=== PATIENT | female | born 1970 | race Two or more races ===

== ENCOUNTER 2018-01-07 15:42 | Emergency (ER) | payer OTHER ==
[~2018-01-07] VITALS: Ht 134.6 cm; Wt 59.0 kg
[2018-01-07 15:59] VITALS: BP 129/78
[2018-01-07] MEDS ORDERED: BACITRACIN-P28.35 GM TP (16:54)
[2018-01-07] MEDS ORDERED: IBUPROFEN600 MG ORAL (16:54)
[2018-01-07] MEDS ORDERED: Bacitracin Oint UD TOPIC ONE (17:00)
--- NOTE | 2018-01-07 22:41 | Emergency Room Report ---
History of Present Illness General Chief Complaint: General Complaint Source: Patient Present Illness HPI 47-year-old female presents to the emergency department complaining of several lacerations to the left forearm with tenderness, 7/10 in severity pain and discoloration associated. Patient reports injury occurred while she was at work. Patient denies taking blood thinning medications, increased to palpation , persistent bleeding, or gaping open wounds. Patient states she is up-to-date with tetanus vaccination which she received 2 years ago. Denies CP, Palpitations, LOC, AMS, dizziness, Changes in Vision, Sensation, paresthesias, or a sudden severe headache. Allergies: Coded Allergies: No Known Allergies (Unverified , 01/07/18) Patient History Past Medical History: see triage record Past Surgical History: none Pertinent Family History: none Last Menstrual Period: 12/27/17 Now: No Immunizations: UTD Reviewed Nursing Documentation: PMH: Agreed; PSxH: Agreed Nursing Documentation-PMH Hx Diabetes: Yes Review of Systems All Other Systems: negative except mentioned in HPI Physical Exam Vital Signs Date Time Temp Pulse Resp B/P (MAP) Pulse Ox O2 Delivery O2 Flow Rate FiO2 01/07/18 15:50 98.0 72 16 129/78 95 Room Air 98.1 Sp02 EP Interpretation: reviewed, normal General Appearance: no apparent distress, alert, GCS 15, non-toxic Head: normocephalic, atraumatic ENT: hearing grossly normal, normal voice Neck: full range of motion Respiratory: lungs clear, normal breath sounds, speaking full sentences Cardiovascular #1: regular rate, rhythm Musculoskeletal: back normal, gait/station normal, normal range of motion, tender - mild ttp with contusion noted to left forearm . Neurologic: alert, oriented x3, responsive, motor strength/tone normal, sensory intact, normal gait, speech normal, grossly normal Psychiatric: judgement/insight normal Skin: normal color, no rash, warm/dry, well hydrated, laceration - Three superficial lacerations to the left forearm each 2cm in length, not bleeding, no evidence of infection at this time. there is contusion of the left forearm. Medical Decision Making PA Attestation Dr. Chaves is my supervising Physician whom patient management has been discussed with. Diagnostic Impression: Primary Impression: Lacerations of multiple sites of left arm Qualified Codes: S41.112A - Laceration without foreign body of left upper arm , initial encounter Additional Impression: Contusion of forearm, left Qualified Codes: S50.12XA - Contusion of left forearm, initial encounter ER Course 47-year-old female presents to the emergency department complaining of several lacerations to the left forearm with tenderness, 7/10 in severity pain and discoloration associated. Patient reports injury occurred while she was at work. Patient denies taking blood thinning medications, increased to palpation , persistent bleeding, or gaping open wounds. Patient states she is up-to-date with tetanus vaccination which she received 2 years ago. Denies CP, Palpitations, LOC, AMS, dizziness, Changes in Vision, Sensation, paresthesias, or a sudden severe headache. Ddx considered but are not limited to laceration, tendon injury, cellulitis, amputation Vital signs: are WNL, pt. is afebrile H&PE are most consistent with: Three superficial lacerations to the left forearm each 2cm in length, not bleeding, no evidence of infection at this time. there is contusion of the left forearm. ORDERS: none required at this time, the diagnosis is clinical ED INTERVENTIONS: - The wound was cleaned, bacitracin and dressing applied by RN. d/w pt. conservative treatment, and to follow up with a primary care provider. pt given a list of primary care clinics for follow up. d/w pt. to return to the ED with worsening or new symptoms. DISCHARGE: At this time pt. is stable for d/c to home. Will provide printed patient care instructions, and any necessary prescriptions. Care plan and follow up instructions have been discussed with the patient prior to discharge. Last Vital Signs Date Time Temp Pulse Resp B/P (MAP) Pulse Ox O2 Delivery O2 Flow Rate FiO2 01/07/18 17:09 98.1 72 16 129/78 95 Room Air 98.1 Disposition: HOME, SELF-CARE Condition: Stable Scripts Bacitracin/Polymyxin B Sulfate (BACITRACIN-POLYMYXIN OINTMENT) 28.35 Gm Oint...g. 1 APPLIC TP BID, #28.3 GM Prov: Harini Vance P.AChristos 01/07/18 Ibuprofen* (MOTRIN*) 600 Mg Tablet 600 MG ORAL THREE TIMES A DAY, #20 TAB 0 Refills Prov: Harini Vance.David 5/1/18 Referrals: NOT CHOSEN [facility]/MD,REFERRING (PCP) Departure Forms: Return to Work Return to Work Date: January 10, 2018 Work Restrictions: None Other Restrictions: none Return to Full Activity: January 10, 2018 Patient Instructions: Nonsutured Laceration Care Additional Instructions: Take medications as directed. Follow up with a Primary Care Provider in 3-5 days, even if your symptoms have resolved. --Please review list of primary care clinics, if you do not already have a primary care provider Return sooner to ED if new symptoms occur, or current symptoms become worse. - Please note that this Emergency Department Report was dictated using [employer] tender technology software, occasionally this can lead to erroneous entry secondary to interpretation by the dictation equipment. Harini Vance January 07, 2018 22:41
== END 2018-01-07 17:11 | disposition home or self-care (01) ==
LOC: EMR 17:10
DX: S51.812A Laceration without foreign body of left forearm, initial encounter (principal); S50.12XA Contusion of left forearm, initial encounter; X58.XXXA Exposure to other specified factors, initial encounter; Y92.512 Supermarket, store or market as the place of occurrence of the external cause; Y99.0 Civilian activity done for income or pay; E11.9 Type 2 diabetes mellitus without complications
CPT/HCPCS: 99284